=== PATIENT | female | born 1935 | race African-American/Black ===

== ENCOUNTER 2017-07-17 12:02 | Emergency (ER) | payer OTHER ==
[~2017-07-17] VITALS: Ht 154.9 cm; Wt 73.0 kg
[~2017-07-17 12:02] MED LIST: ALDACTONE50 MG PO; ASPIR 8181 M1 PO; ASPIR-LOW81 MG PO; Aldactone PO; B-121000 MC2 PO; BAYER CHILDREN'81 M1 PO; BENICAR20 MG PO; BENICAR40 MG PO; BUSPAR5 MG PO; Benadryl PO; CALCIUM600 M1 PO; CALTRATE 600+D1 EAC1 PO; CELEBREX200 MG PO; COUMADIN,JANTOVE5 MG PO; COUMADIN1 MG PO; Calcium Carbonate,Ca PO; Coumadin,Jantoven PO; DAILY VITE1 EAC1 PO; Dulcolax PO; ELIQUIS2.5 MG PO; ESSENTIAL WOMA1 EAC1 PO; FEOSOL45 MG PO; FLEXERIL10 MG PO; FUROSEMIDE20 MG PO; Feosol PO; Folvite PO; GLUCOPHAGE500 MG PO; Glucophage PO; IRON325 M1 PO; KLOR-CON20 MEQ PO; LEVAQUIN500 MG PO; LIPITOR40 MG PO; LOPRESSOR100 M1 PO; LOPRESSOR25 MG PO; LOVENOX80 MG/0.8 SC; METFORMIN HCL500 MG PO; METOPROLOL SUCC50 MG PO; METOPROLOL TAR100 MG PO; MY FAVORITE MU237 ML PO; Maalox, Mylanta PO; NAPROSYN500 MG PO; NIFEDIPINE ER90 M1 PO; NITROSTAT,NITR0.4 M1 SL; NOLVADEX10 MG PO; NOLVADEX20 MG PO; NORCO 5/3251 TABLET PO; NORVASC5 MG PO; Oscal 500 w/Vitamin PO; PRIMIDONE50 MG PO; PROCARDIA XL60 MG PO; Procardia XL,Adalat PO; Protonix PO; SIMVASTATIN40 MG PO; Senokot S,Pericolace PO; TERAZOSIN HCL2 MG PO; THERAGRAN1 TABLET PO; TOPROL XL50 MG PO; TYLENOL EXTRA500 MG PO; Toprol XL PO; Tylenol Regular Stre PO; VESICARE5 MG PO; VICODIN,LORT1 TABLET PO; Vicodin,Lortab 5/500 PO; Vicodin,Norco 5/325 PO; WARFARIN SODIUM4 MG PO; ZOCOR80 M1 PO; ZOCOR80 MG PO; Zestril,Prinivil PO; Zocor PO
[2017-07-17 12:29] LABS: HEMATOCRIT 32.1 % (36.0-46.0); MEAN PLAT.VOLUME 10.7 uM^3 (9.5-12.4); PLATELET COUNT 139 K/uL (156-360); RBC DIS.WIDTH-CV 12.3 % (11.8-14.6); RBC DIS.WIDTH-SD 45.7 % (39-53); RED BLOOD COUNT 3.21 M/uL (3.80-5.20); WHITE BLOOD COUNT 4.8 K/uL (4.1-10.2)
[2017-07-17 12:37] LABS: CHLORIDE 109 mEq/L (99-109); POTASSIUM 3.4 mEq/L (3.7-5.4); SODIUM 141 mEq/L (136-147)
[2017-07-17 12:39] LABS: GLUCOSE 123 mg/dL (70-99)
[2017-07-17 12:40] LABS: ANION GAP 5 MEQ/L (2-14)
[2017-07-17 12:43] LABS: GFR ESTIMATE (CALCULATED) > 59 mL/min/
[2017-07-17 12:44] LABS: UREA NITROGEN (BUN) 22 mg/dL (9-23)
[2017-07-17 14:08] LABS: TROP-I INTERPRETATION NEGATIVE; TROPONIN-I 0.01 ng/mL (0.0-0.30)
[2017-07-17 15:30] VITALS: BP 156/65
[2017-07-17] MEDS ORDERED: PREDNISONE50 MG PO (15:51)
[2017-07-18] MEDS ORDERED: PREDNISONE50 MG PO (15:28)
[2017-07-18] MEDS ORDERED: VITAMIN D31000 UNIT PO (15:31)
[2017-07-18] MEDS ORDERED: LEXAPRO5 MG PO (15:32)
[2017-07-18] MEDS ORDERED: ALDACTONE25 MG PO (15:32)
[2017-07-18] MEDS ORDERED: LABETALOL HCL100 MG PO (15:33)
[2017-07-18] MEDS ORDERED: NORVASC2.5 MG PO (15:35)
[2017-07-18] MEDS ORDERED: REFRESH TEARS15 ML BOTH EYES (15:37)
== END 2017-07-17 16:07 | disposition home or self-care (01) ==
LOC: EME 12:02
DX: R47.1 Dysarthria and anarthria (principal); I10 Essential (primary) hypertension; E11.9 Type 2 diabetes mellitus without complications; Z85.3 Personal history of malignant neoplasm of breast; Z87.891 Personal history of nicotine dependence; Z86.711 Personal history of pulmonary embolism
CPT/HCPCS: 70450; 71020; 80048; 81003; 84484; 85027; 93005; 99281; 99285; J7512

== ENCOUNTER 2017-07-18 12:02 | Emergency (ER) | payer OTHER ==
[~2017-07-18] VITALS: Ht 157.5 cm; Wt 77.6 kg
[~2017-07-18 12:02] MED LIST changes: +PREDNISONE50 MG PO
[2017-07-18 12:54] LABS: HEMATOCRIT 32.9 % (36.0-46.0); MCH 32.9 PG (29.0-34.0); MCHC 33.1 G/DL (30.0-36.0); MCV 99.4 FL (83-99); MEAN PLAT.VOLUME 10.5 uM^3 (9.5-12.4); PLATELET COUNT 146 K/uL (156-360); RBC DIS.WIDTH-CV 12.4 % (11.8-14.6); RBC DIS.WIDTH-SD 45.1 % (39-53); RED BLOOD COUNT 3.31 M/uL (3.80-5.20); WHITE BLOOD COUNT 8.4 K/uL (4.1-10.2)
[2017-07-18 13:03] LABS: CHLORIDE 112 mEq/L (99-109); POTASSIUM 3.5 mEq/L (3.7-5.4); SODIUM 144 mEq/L (136-147)
[2017-07-18 13:04] LABS: GLUCOSE 135 mg/dL (70-99)
[2017-07-18 13:06] LABS: ANION GAP 5 MEQ/L (2-14)
[2017-07-18 13:08] LABS: GFR ESTIMATE (CALCULATED) > 59 mL/min/
[2017-07-18 13:09] LABS: UREA NITROGEN (BUN) 26 mg/dL (9-23)
[2017-07-18] MEDS ORDERED: PREDNISONE50 MG PO (15:28)
[2017-07-18] MEDS ORDERED: VITAMIN D31000 UNIT PO (15:31)
[2017-07-18] MEDS ORDERED: ALDACTONE25 MG PO (15:32)
[2017-07-18] MEDS ORDERED: LEXAPRO5 MG PO (15:32)
[2017-07-18] MEDS ORDERED: LABETALOL HCL100 MG PO (15:33)
[2017-07-18] MEDS ORDERED: NORVASC2.5 MG PO (15:35)
[2017-07-18] MEDS ORDERED: REFRESH TEARS15 ML BOTH EYES (15:37)
[2017-07-18 17:51] VITALS: BP 171/99
== END 2017-07-18 18:04 | disposition home or self-care (01) ==
LOC: EME 12:02
DX: G45.9 Transient cerebral ischemic attack, unspecified (principal); R41.82 Altered mental status, unspecified; I10 Essential (primary) hypertension; E11.8 Type 2 diabetes mellitus with unspecified complications; Z86.73 Personal history of transient ischemic attack (TIA), and cerebral infarction without residual deficits; Z86.711 Personal history of pulmonary embolism; Z85.3 Personal history of malignant neoplasm of breast; Z87.891 Personal history of nicotine dependence
CPT/HCPCS: 70551; 71020; 80048; 85027; 93880; 99281; 99285